=== PATIENT | female | born 1960 ===

== ENCOUNTER 2021-11-19 08:31 | Emergency (ER) | payer MEDICARE ==
[2021-11-19] MEDS ORDERED: SODIUM CHLORIDE 0.9% 1000 ML 1,000 ML IV ONE (09:02)
--- NOTE | 2021-11-19 09:05 | Emergency Department Report ---
HPI - General Chief Complaint: Overdose Time Seen by Provider: 11/19/21 09:00 - HPI HPI: The patient was found unresponsive in the bathroom floor of a retail store. EMS found the patient breathing 4 times a minute and unresponsive and gave her 4 mg of Narcan. The patient promptly responded to this and now she is confused and scared. She denies headache focal weakness nausea vomiting fever chills or any other associated symptoms. She does not know how she got to where she was. She denies any ingestions. ED Past Medical Hx - Past Medical History Previous Medical History?: No Additional medical history: DRUG ABUSE - Surgical History Past Surgical History?: No - Family History Family history: no significant - Social History Smoking Status: Current Every Day Smoker Substance Use Type: None - Medications Home Medications: Home Medications Medication Instructions Recorded Confirmed Last Taken Type Naloxone HCl 0.4 mg IJ ONCE 1 Days #1 vial 11/19/21 Unknown Rx ED Review of Systems ROS: Stated complaint: OVERDOSE Other details as noted in HPI Comment: All other systems reviewed and negative Physical Exam - Physical Exam Vital Signs: Vital Signs 11/19/21 11/19/21 11/19/21 08:32 08:39 08:47 Temperature 97.6 F 92.2 F L Pulse Rate 116 H 83 Respiratory 14 18 Rate Blood Pressure Blood Pressure 150/90 127/74 [Left] O2 Sat by Pulse 99 95 95 Oximetry 11/19/21 08:51 Temperature 97.2 F L Pulse Rate 83 Respiratory Rate Blood Pressure 106/66 Blood Pressure [Left] O2 Sat by Pulse 95 Oximetry Physical Exam: Physical Exam Constitutional: General: Anxious Appearance: No diaphoresis. HENT: Head: Normocephalic. Eyes: Pupils: Pupils are equal, round, and reactive to light. Neck: Musculoskeletal: Normal range of motion. Cardiovascular: Rate and Rhythm: Normal rate and regular rhythm. Pulses: Intact distal pulses. Heart sounds: Normal heart sounds. No murmur. Pulmonary: Effort: No respiratory distress. Breath sounds: No wheezing or rales. Chest: Chest wall: No tenderness. Abdominal: General: There is no distension. Palpations: There is no mass. Tenderness: There is no abdominal tenderness. There is no guarding or rebound. Musculoskeletal: Normal range of motion. Skin: General: Skin is warm and dry. Neurological: Mental Status: Alert and oriented to person, place, and time. Psychiatric: Mood and Affect: Mood is anxious with congruent affect. Cognition and Memory: Memory normal. Judgment: Judgment normal. ED Course Vital Signs 11/19/21 11/19/21 11/19/21 08:32 08:39 08:47 Temperature 97.6 F 92.2 F L Pulse Rate 116 H 83 Respiratory 14 18 Rate Blood Pressure Blood Pressure 150/90 127/74 [Left] O2 Sat by Pulse 99 95 95 Oximetry 11/19/21 08:51 Temperature 97.2 F L Pulse Rate 83 Respiratory Rate Blood Pressure 106/66 Blood Pressure [Left] O2 Sat by Pulse 95 Oximetry - Reevaluation(s) Reevaluation #1: 11/19/21 09:48 On evaluation the patient is awake alert active x3 and desiring to leave the hospital. She no longer appears under the influence of any psychoactive substances or narcotics. She did later admit that she was given something but she does not know what she was given and that probably what caused her altered mental status. At this time she can be discharged safely. Her significant other is at the bedside accepting responsibility. He will keep an eye on her today and bring her back if any other issues arise. Critical care attestation.: If time is entered above; I have spent that time in minutes in the direct care of this critically ill patient, excluding procedure time. ED Disposition Clinical Impression: Narcotic overdose Disposition: 01 HOME / SELF CARE / HOMELESS Is pt being admited?: No Does the pt Need Aspirin: No Condition: Stable Instructions: Accidental Drug Poisoning, Adult Prescriptions: Naloxone HCl 0.4 mg IJ ONCE 1 Days #1 vial Time of Disposition: 09:50 Print Language: BAHRAINI
[2021-11-19 10:10] VITALS: BP 101/61
== END 2021-11-19 10:00 | disposition home or self-care (01) ==
LOC: ED 08:31
DX: T40.601A Poisoning by unspecified narcotics, accidental (unintentional), initial encounter (principal); Y92.89 Other specified places as the place of occurrence of the external cause; F17.200 Nicotine dependence, unspecified, uncomplicated
CPT/HCPCS: 99283